=== PATIENT | female | born 1980 | race Caucasian/White ===

== ENCOUNTER 2016-10-20 20:55 | Emergency (ER) | payer OTHER ==
[~2016-10-20] VITALS: Ht 152.4 cm; Wt 92.1 kg
[~2016-10-20 20:55] MED LIST: ALBUTEROL SULF8.5 GM IH; BACTRIM,SEPT1 TABLET PO; CLARITIN10 MG PO; DIFLUCAN150 MG PO; FLONASE16 G1 BOTH NARES; HYCODAN SYRUP480 ML PO; IMIPRAMINE HCL25 MG PO; INDOCIN50 MG PO; KEFLEX500 MG PO; LISINOPRIL10 MG PO; LYRICA75 MG PO; MOTRIN400 MG PO; MOTRIN800 MG PO; MUCINEX D ER T1 EACH PO; NOHOMEMEDS; NORCO 5/3251 TABLET PO; OMEPRAZOLE20 MG PO; PAROXETINE HCL20 MG PO; PERCOCET 5/31 TABLET PO; PREDNISONE10 MG PO; PREDNISONE20 MG PO; PROVENTIL HFA6.7 GM IH; PYRIDIUM200 MG PO; ROBITUSSIN AC,T10 ML PO; TESSALON PERLE100 MG PO; TORADOL10 MG PO; TYLENOL REGULA325 MG PO; TYLENOL WITH C1 EACH PO; ULTRAM50 MG PO; VALIUM5 MG PO; ZANTAC150 MG PO; ZITHROMAX Z-PA250 MG PO; ZITHROMAX250 MG PO; ZOFRAN4 MG PO
[2016-10-20 22:17] LABS: HEMATOCRIT 37.3 % (36.0-46.0); MCH 30.3 PG (29.0-34.0); MCHC 33.8 G/DL (30.0-36.0); MCV 89.7 FL (83-99); RBC DIS.WIDTH-CV 12.3 % (11.8-14.6); RBC DIS.WIDTH-SD 40.6 % (39-53); RED BLOOD COUNT 4.16 M/uL (3.80-5.20); WHITE BLOOD COUNT 9.8 K/uL (4.1-10.2)
[2016-10-20 22:26] LABS: CHLORIDE 109 mEq/L (99-109); POTASSIUM 3.9 mEq/L (3.7-5.4); SODIUM 139 mEq/L (136-147)
[2016-10-20 22:28] LABS: GLUCOSE 87 mg/dL (70-99)
[2016-10-20 22:30] LABS: ADD MIUA? NO; BILIRUBIN NEGATIVE; BLOOD NEGATIVE; COLOR STRAW ((YELLOW)); GLUCOSE (STRIP) NEGATIVE; KETONES NEGATIVE; LEUKOCYTES NEGATIVE; NITRITE NEGATIVE; PROTEIN (STRIP) NEGATIVE; SPECIFIC GRAVITY 1.009 (1.000-1.030); UROBILINOGEN 0.2 MG/DL (0.2-1.0)
[2016-10-20 22:30] LABS: ANION GAP 11 MEQ/L (2-14); TOTAL BILIRUBIN 0.2 mg/dL (0.0-1.0)
[2016-10-20 22:32] LABS: ALKALINE PHOSPHATASE 96 IU/L (3-129); GFR ESTIMATE (CALCULATED) > 59 mL/min/
[2016-10-20 22:33] LABS: UREA NITROGEN (BUN) 9 mg/dL (9-23)
[2016-10-20 22:40] LABS: QUANTITATIVE HCG < 4.0 MIU/ML
[2016-10-20 23:37] LABS: MEAN PLAT.VOLUME 10.8 uM^3 (9.5-12.4); PLAT.SUFFICIENCY ADEQUATE; PLATELET COUNT 233 K/uL (156-360)
[2016-10-21] MEDS ORDERED: FIORICET 50-301 EACH PO (00:37)
[2016-10-21] MEDS ORDERED: ZOFRAN ODT4 MG PO (00:37)
[2016-10-21] MEDS ORDERED: MOTRIN800 MG PO (00:37)
[2016-10-21 01:06] VITALS: BP 124/64
== END 2016-10-21 01:11 | disposition home or self-care (01) ==
LOC: EME 20:55
PROVIDERS: Nurse Practitioner Family
DX: G43.909 Migraine, unspecified, not intractable, without status migrainosus (principal); I10 Essential (primary) hypertension; M79.7 Fibromyalgia; F41.9 Anxiety disorder, unspecified; F17.200 Nicotine dependence, unspecified, uncomplicated; R11.2 Nausea with vomiting, unspecified
CPT/HCPCS: 70450; 80053; 81003; 84702; 85027; 99281; 99285; J1100; J1885; J2405; J3010; J7040

== ENCOUNTER 2016-11-24 17:48 | Emergency (ER) | payer OTHER ==
[~2016-11-24] VITALS: Ht 152.4 cm; Wt 88.9 kg
[~2016-11-24 17:48] MED LIST changes: +FIORICET 50-301 EACH PO; +ZOFRAN ODT4 MG PO
[2016-11-24 18:21] LABS: EOSINOPHIL COUNT 0.1 K/uL (0-0.3); HEMATOCRIT 36.1 % (36.0-46.0); IMMATURE GRANULOCYTE (%) 0.4 % (0.0-0.7); INSTRUMENT ABS NEUTROPHIL CT 4.7 K/uL; LYMPHOCYTE COUNT 2.5 K/uL (1.0-2.8); MCH 30.8 PG (29.0-34.0); MCHC 34.3 G/DL (30.0-36.0); MCV 89.6 FL (83-99); MONOCYTE (%) 5.5 % (3-12); MONOCYTE COUNT 0.4 K/uL (0-0.8); NEUTROPHIL (%) 60.5 % (45-76); NEUTROPHIL COUNT 4.7 K/uL (1.8-6.4); PLATELET COUNT 247 K/uL (156-360); RBC DIS.WIDTH-CV 12.6 % (11.8-14.6); RBC DIS.WIDTH-SD 41.4 % (39-53); RED BLOOD COUNT 4.03 M/uL (3.80-5.20); WHITE BLOOD COUNT 7.8 K/uL (4.1-10.2)
[2016-11-24 18:26] LABS: ADD MIUA? YES; BILIRUBIN NEGATIVE; BLOOD NEGATIVE; COLOR YELLOW ((YELLOW)); GLUCOSE (STRIP) NEGATIVE; KETONES NEGATIVE; LEUKOCYTES TRACE; NITRITE NEGATIVE; PROTEIN (STRIP) NEGATIVE; SPECIFIC GRAVITY 1.024 (1.000-1.030); UROBILINOGEN 0.2 MG/DL (0.2-1.0)
[2016-11-24 18:31] LABS: BACTERIA RARE /HPF; EPITHELIAL CELLS 1+ /HPF; MUCUS TRACE /LPF; RED BLOOD CELLS 0-5 /HPF (0-5)
[2016-11-24 18:34] LABS: CHLORIDE 108 mEq/L (99-109); POTASSIUM 3.4 mEq/L (3.7-5.4); SODIUM 139 mEq/L (136-147)
[2016-11-24 18:36] LABS: GLUCOSE 103 mg/dL (70-99)
[2016-11-24 18:38] LABS: ANION GAP 9 MEQ/L (2-14); TOTAL BILIRUBIN 0.3 mg/dL (0.0-1.0)
[2016-11-24 18:40] LABS: ALKALINE PHOSPHATASE 92 IU/L (3-129); GFR ESTIMATE (CALCULATED) > 59 mL/min/
[2016-11-24 18:41] LABS: UREA NITROGEN (BUN) 10 mg/dL (9-23)
[2016-11-24 18:43] LABS: LIPASE 11 U/L (1.0-51.0)
[2016-11-24 18:49] LABS: QUANTITATIVE HCG < 4.0 MIU/ML
[2016-11-24] MEDS ORDERED: ZOFRAN ODT8 MG PO (19:47)
[2016-11-24 20:23] VITALS: BP 124/82
== END 2016-11-24 20:37 | disposition home or self-care (01) ==
LOC: EME 17:48
PROVIDERS: Physician Assistant
DX: R11.2 Nausea with vomiting, unspecified (principal); R19.7 Diarrhea, unspecified; I10 Essential (primary) hypertension; M79.7 Fibromyalgia; Z87.442 Personal history of urinary calculi; F17.200 Nicotine dependence, unspecified, uncomplicated; Z86.14 Personal history of Methicillin resistant Staphylococcus aureus infection
CPT/HCPCS: 80053; 81003; 83690; 84702; 85025; 99281; 99284; J1885; J2270; J7030

== ENCOUNTER 2016-11-26 20:58 | Emergency (ER) | payer OTHER ==
[~2016-11-26] VITALS: Ht 152.4 cm; Wt 89.2 kg
[~2016-11-26 20:58] MED LIST changes: +ZOFRAN ODT8 MG PO
[2016-11-26 22:23] LABS: ADD MIUA? YES; BILIRUBIN NEGATIVE; BLOOD NEGATIVE; COLOR YELLOW ((YELLOW)); GLUCOSE (STRIP) NEGATIVE; KETONES NEGATIVE; LEUKOCYTES TRACE; NITRITE NEGATIVE; PROTEIN (STRIP) NEGATIVE; SPECIFIC GRAVITY 1.019 (1.000-1.030); UROBILINOGEN 0.2 MG/DL (0.2-1.0)
[2016-11-26 22:39] LABS: BACTERIA NONE SEEN /HPF; CALCIUM OXALATE CRYSTALS 1+ /HPF; EPITHELIAL CELLS 1+ /HPF; MUCUS TRACE /LPF; RED BLOOD CELLS 0-5 /HPF (0-5); UCUL ADDED? NO
[2016-11-26 22:44] LABS: HEMATOCRIT 37.3 % (36.0-46.0); MCH 30.4 PG (29.0-34.0); MCHC 33.8 G/DL (30.0-36.0); MCV 90.1 FL (83-99); MEAN PLAT.VOLUME 10.8 uM^3 (9.5-12.4); PLATELET COUNT 241 K/uL (156-360); RBC DIS.WIDTH-CV 12.5 % (11.8-14.6); RBC DIS.WIDTH-SD 41.1 % (39-53); RED BLOOD COUNT 4.14 M/uL (3.80-5.20); WHITE BLOOD COUNT 7.9 K/uL (4.1-10.2)
[2016-11-26 23:04] LABS: CHLORIDE 110 mEq/L (99-109); POTASSIUM 3.4 mEq/L (3.7-5.4); SODIUM 140 mEq/L (136-147)
[2016-11-26 23:06] LABS: GLUCOSE 90 mg/dL (70-99)
[2016-11-26 23:07] LABS: ANION GAP 6 MEQ/L (2-14)
[2016-11-26 23:09] LABS: ALKALINE PHOSPHATASE 84 IU/L (3-129); TOTAL BILIRUBIN 0.2 mg/dL (0.0-1.0)
[2016-11-26 23:10] LABS: GFR ESTIMATE (CALCULATED) > 59 mL/min/
[2016-11-26 23:11] LABS: UREA NITROGEN (BUN) 8 mg/dL (9-23)
[2016-11-26 23:13] LABS: LIPASE 13 U/L (1.0-51.0)
[2016-11-26 23:20] LABS: QUANTITATIVE HCG < 4.0 MIU/ML
[2016-11-27] MEDS ORDERED: REGLAN10 MG PO (01:05)
[2016-11-27 01:30] VITALS: BP 115/67
== END 2016-11-27 01:51 | disposition home or self-care (01) ==
LOC: EME 20:58
PROVIDERS: Physician Assistant
DX: R11.2 Nausea with vomiting, unspecified (principal); R10.13 Epigastric pain; I10 Essential (primary) hypertension; M79.7 Fibromyalgia; Z87.442 Personal history of urinary calculi; F17.200 Nicotine dependence, unspecified, uncomplicated
CPT/HCPCS: 76705; 80053; 81003; 83690; 84702; 85027; 87077; 87086; 87186; 93971; 99281; 99284; J1200; J2270; J2765; J7030; S0028

== ENCOUNTER 2017-01-06 21:00 | Emergency (ER) | payer OTHER ==
[~2017-01-06] VITALS: Ht 152.4 cm; Wt 84.8 kg
[~2017-01-06 21:00] MED LIST changes: +REGLAN10 MG PO
[2017-01-06 22:59] LABS: HEMATOCRIT 41.1 % (36.0-46.0); MCH 30.6 PG (29.0-34.0); MCHC 33.8 G/DL (30.0-36.0); MCV 90.5 FL (83-99); MEAN PLAT.VOLUME 11.4 uM^3 (9.5-12.4); PLATELET COUNT 220 K/uL (156-360); RBC DIS.WIDTH-CV 12.2 % (11.8-14.6); RBC DIS.WIDTH-SD 40.5 % (39-53); RED BLOOD COUNT 4.54 M/uL (3.80-5.20); WHITE BLOOD COUNT 9.7 K/uL (4.1-10.2)
[2017-01-06 23:13] LABS: CHLORIDE 108 mEq/L (99-109); SODIUM 141 mEq/L (136-147)
[2017-01-06 23:15] LABS: GLUCOSE 85 mg/dL (70-99)
[2017-01-06 23:17] LABS: ANION GAP 14 MEQ/L (2-14); TOTAL BILIRUBIN 0.3 mg/dL (0.0-1.0)
[2017-01-06 23:19] LABS: ALKALINE PHOSPHATASE 110 IU/L (3-129); GFR ESTIMATE (CALCULATED) > 59 mL/min/
[2017-01-06 23:20] LABS: UREA NITROGEN (BUN) 12 mg/dL (9-23)
[2017-01-06 23:28] LABS: QUANTITATIVE HCG < 4.0 MIU/ML
[2017-01-07 00:15] LABS: ADD MIUA? YES; BILIRUBIN NEGATIVE; BLOOD NEGATIVE; COLOR YELLOW ((YELLOW)); GLUCOSE (STRIP) NEGATIVE; KETONES NEGATIVE; LEUKOCYTES SMALL; NITRITE NEGATIVE; PROTEIN (STRIP) NEGATIVE; SPECIFIC GRAVITY 1.017 (1.000-1.030); UROBILINOGEN 0.2 MG/DL (0.2-1.0)
[2017-01-07 00:41] LABS: BACTERIA NONE SEEN /HPF; CALCIUM OXALATE CRYSTALS 1+ /HPF; EPITHELIAL CELLS 2+ /HPF; MUCUS TRACE /LPF; UCUL ADDED? NO; WHITE BLOOD CELLS 15-20 /HPF (0-5)
[2017-01-07] MEDS ORDERED: GABAPENTIN100 MG PO (00:58)
[2017-01-07] MEDS ORDERED: CLONIDINE HCL0.1 MG PO (00:58)
[2017-01-07] MEDS ORDERED: ESCITALOPRAM OX20 MG PO (01:01)
[2017-01-07 01:08] LABS: LIPASE 12 U/L (1.0-51.0)
[2017-01-07] MEDS ORDERED: CIPRO500 MG PO (01:40)
[2017-01-07 01:57] VITALS: BP 127/75
== END 2017-01-07 01:58 | disposition home or self-care (01) ==
LOC: EME 21:00
DX: N39.0 Urinary tract infection, site not specified (principal); F17.200 Nicotine dependence, unspecified, uncomplicated; M79.7 Fibromyalgia; I10 Essential (primary) hypertension; G43.909 Migraine, unspecified, not intractable, without status migrainosus
CPT/HCPCS: 74176; 80053; 81003; 83690; 84702; 85027; 99281; 99284

== ENCOUNTER 2017-02-09 15:30 | Emergency (ER) | payer OTHER ==
[~2017-02-09] VITALS: Ht 162.6 cm; Wt 83.6 kg
[~2017-02-09 15:30] MED LIST changes: +CIPRO500 MG PO; +CLONIDINE HCL0.1 MG PO; +ESCITALOPRAM OX20 MG PO; +GABAPENTIN100 MG PO
[2017-02-09] MEDS ORDERED: TESSALON PERLE100 MG PO (17:44)
[2017-02-09] MEDS ORDERED: MUCUS RELIEF600 M1 PO (17:44)
[2017-02-09] MEDS ORDERED: FLONASE16 G1 BOTH NARES (17:44)
[2017-02-09] MEDS ORDERED: ROBITUSSIN NIG237 ML PO (17:44)
[2017-02-09] MEDS ORDERED: NAPROSYN500 MG PO (17:44)
[2017-02-09 17:52] VITALS: BP 103/90
== END 2017-02-09 17:53 | disposition home or self-care (01) ==
LOC: EME 15:30
DX: J02.9 Acute pharyngitis, unspecified (principal); R05 Cough; J30.2 Other seasonal allergic rhinitis; F17.200 Nicotine dependence, unspecified, uncomplicated; Z71.6 Tobacco abuse counseling; I10 Essential (primary) hypertension; Z87.442 Personal history of urinary calculi
CPT/HCPCS: 87651 90; 99281; 99284

== ENCOUNTER 2017-02-11 13:20 | Emergency (ER) | payer OTHER ==
[~2017-02-11] VITALS: Ht 152.4 cm; Wt 84.4 kg
[~2017-02-11 13:20] MED LIST changes: +MUCUS RELIEF600 M1 PO; +NAPROSYN500 MG PO; +ROBITUSSIN NIG237 ML PO
[2017-02-11 14:20] LABS: ADD MIUA? YES; BILIRUBIN NEGATIVE; BLOOD SMALL; COLOR YELLOW ((YELLOW)); GLUCOSE (STRIP) NEGATIVE; KETONES NEGATIVE; LEUKOCYTES LARGE; NITRITE NEGATIVE; PROTEIN (STRIP) NEGATIVE; SPECIFIC GRAVITY 1.014 (1.000-1.030); UROBILINOGEN 0.2 MG/DL (0.2-1.0)
[2017-02-11 14:37] LABS: EPITHELIAL CELLS 2+ /HPF; WHITE BLOOD CELLS TNTC /HPF (0-5)
[2017-02-11 14:39] LABS: BACTERIA 2+ /HPF; MUCUS NONE SEEN /LPF; UCUL ADDED? YES
[2017-02-11 14:40] LABS: OTHER TRICHOMONAS
[2017-02-11 14:50] LABS: HEMATOCRIT 38.3 % (36.0-46.0); MCH 30.6 PG (29.0-34.0); MCHC 33.4 G/DL (30.0-36.0); MCV 91.6 FL (83-99); MEAN PLAT.VOLUME 10.3 uM^3 (9.5-12.4); PLATELET COUNT 206 K/uL (156-360); RBC DIS.WIDTH-CV 12.2 % (11.8-14.6); RBC DIS.WIDTH-SD 40.8 % (39-53); RED BLOOD COUNT 4.18 M/uL (3.80-5.20); WHITE BLOOD COUNT 11.6 K/uL (4.1-10.2)
[2017-02-11 14:59] LABS: CHLORIDE 110 mEq/L (99-109); POTASSIUM 4.1 mEq/L (3.7-5.4); SODIUM 141 mEq/L (136-147)
[2017-02-11 15:01] LABS: GLUCOSE 96 mg/dL (70-99)
[2017-02-11 15:02] LABS: ANION GAP 10 MEQ/L (2-14)
[2017-02-11 15:03] LABS: TOTAL BILIRUBIN 0.3 mg/dL (0.0-1.0)
[2017-02-11 15:05] LABS: ALKALINE PHOSPHATASE 122 IU/L (3-129); GFR ESTIMATE (CALCULATED) > 59 mL/min/
[2017-02-11 15:06] LABS: UREA NITROGEN (BUN) 9 mg/dL (9-23)
[2017-02-11 15:15] LABS: QUANTITATIVE HCG < 4.0 MIU/ML
[2017-02-11] MEDS ORDERED: FLAGYL500 MG PO (16:17)
[2017-02-11] MEDS ORDERED: VENTOLIN HFA18 GM IH (16:17)
[2017-02-11] MEDS ORDERED: PREDNISONE10 MG PO (16:17)
[2017-02-11 16:24] VITALS: BP 111/67
[2017-02-15 13:16] LABS: CHLAMYDIA TRACHOMATIS NEGATIVE; NEISSERIA GONORRHOEAE NEGATIVE
== END 2017-02-11 16:31 | disposition home or self-care (01) ==
LOC: EME 13:20
PROVIDERS: Physician Assistant
DX: A59.01 Trichomonal vulvovaginitis (principal); J06.9 Acute upper respiratory infection, unspecified; Z71.6 Tobacco abuse counseling; F17.210 Nicotine dependence, cigarettes, uncomplicated; I10 Essential (primary) hypertension; M79.7 Fibromyalgia; Z87.442 Personal history of urinary calculi; Z86.14 Personal history of Methicillin resistant Staphylococcus aureus infection
CPT/HCPCS: 80053; 81003; 84702; 85027; 87086; 87210; 87491; 87591; 94640; 99281; 99285; J0696

== ENCOUNTER 2017-03-21 13:24 | Emergency (ER) | payer OTHER ==
[~2017-03-21] VITALS: Ht 152.4 cm; Wt 82.0 kg
[~2017-03-21 13:24] MED LIST changes: +FLAGYL500 MG PO; +VENTOLIN HFA18 GM IH
[2017-03-21 13:26] VITALS: BP 149/82
[2017-03-21] MEDS ORDERED: INDOCIN50 MG PO (16:19)
== END 2017-03-21 16:27 | disposition home or self-care (01) ==
LOC: EME 13:24
DX: G56.01 Carpal tunnel syndrome, right upper limb (principal); I10 Essential (primary) hypertension; F17.200 Nicotine dependence, unspecified, uncomplicated
CPT/HCPCS: 99281; 99284

== ENCOUNTER 2017-06-02 17:55 | Emergency (ER) | payer OTHER ==
[~2017-06-02] VITALS: Ht 162.6 cm; Wt 82.4 kg
[2017-06-02] MEDS ORDERED: ATARAX,VISTARIL25 MG PO (19:49)
[2017-06-02] MEDS ORDERED: ZOFRAN ODT4 MG PO (19:49)
[2017-06-02 20:21] VITALS: BP 131/83
== END 2017-06-02 20:24 | disposition home or self-care (01) ==
LOC: EME 17:55
DX: L29.9 Pruritus, unspecified (principal); R21 Rash and other nonspecific skin eruption; R19.7 Diarrhea, unspecified; R11.0 Nausea; R05 Cough; J02.9 Acute pharyngitis, unspecified; I10 Essential (primary) hypertension; Z87.442 Personal history of urinary calculi; Z86.14 Personal history of Methicillin resistant Staphylococcus aureus infection; F17.200 Nicotine dependence, unspecified, uncomplicated
CPT/HCPCS: 99281; 99284; Q0177

== ENCOUNTER 2017-06-04 22:54 | Emergency (ER) | payer OTHER ==
[~2017-06-04] VITALS: Ht 152.4 cm; Wt 81.3 kg
[~2017-06-04 22:54] MED LIST changes: +ATARAX,VISTARIL25 MG PO
[2017-06-05] MEDS ORDERED: ZOFRAN ODT4 MG PO (00:59)
[2017-06-05] MEDS ORDERED: ZYRTEC10 M2 PO (00:59)
[2017-06-05 01:06] VITALS: BP 137/96
== END 2017-06-05 01:07 | disposition home or self-care (01) ==
LOC: EME 22:54
DX: R11.2 Nausea with vomiting, unspecified (principal); R19.7 Diarrhea, unspecified; B34.9 Viral infection, unspecified; R05 Cough; R21 Rash and other nonspecific skin eruption; Z87.442 Personal history of urinary calculi; I10 Essential (primary) hypertension; Z86.14 Personal history of Methicillin resistant Staphylococcus aureus infection; F17.200 Nicotine dependence, unspecified, uncomplicated
CPT/HCPCS: 71020; 99281; 99284